=== PATIENT | male | born 1965 | race African-American/Black ===

== ENCOUNTER 2023-03-23 17:20 | Emergency (ER) | payer OTHER ==
[~2023-03-23 17:20] MED LIST: Iopamidol-370 76% 500 ML MDV (1 ML CHARGE) ONE
[2023-03-23 18:18] LABS: Hemoglobin 14.2 g/dL (14.0-18.0); Manual Diff?? YES; Mean Corpuscular HGB CONC 33.9 g/dL (32.0-36.0); Mean Corpuscular Hemoglobin 31.9 pg (27.0-31.0); Mean Corpuscular Volume 94.2 fl (78.0-98.0); Mean Platelet Volume 10.6 fL (7.4-10.4); Platelet Count 168 10x3/uL (130-400); RBC Distribution Width 12.4 % (11.5-14.5); Red Blood Cell (RBC) Count 4.45 mill/uL (4.70-6.10); White Blood Cell (WBC) Count 4.7 10x3/uL (4.8-10.8)
[2023-03-23 18:21] LABS: Delete Auto Diff?? YES
[2023-03-23 18:34] LABS: Prothrombin Time 13.5 sec (12.0-14.7)
[2023-03-23 18:39] LABS: CellaVision Operator ID LAB.KB; Eosinophils 3 % (0-10); Large Platelets 5.1 % (0-5); Lymphocytes 31 % (21-51); Monocytes 13 % (0-10); Neutrophil 30 % (42-75); Platelet Adequacy Comment Platelets Normal; RBC Morphology Within Normal Limits; Reactive Lymphocytes 22 % (0-10); Smudge Cells 30.3 %; Total Cell Count 99
[2023-03-23 18:49] LABS: Anion Gap 13 mmol/L (10-20); BUN (Urea Nitrogen) 13 mg/dL (8.4-25.7); Calc. Creatinine Clearance 0 mL/min (70-130); Carbon Dioxide 24 mmol/L (22-29); Chloride 106 mmol/L (98-107); Estimated GFR 99; Glucose 84 mg/dL (70-105); Potassium 4.6 mmol/L (3.5-5.1); Sodium 138 mmol/L (136-145)
[2023-03-23 18:50] LABS: ALT (SGPT) 31 U/L (8-55); AST (SGOT) 21 U/L (5-34); Albumin 4.1 g/dL (3.5-5.0); Alkaline Phosphatase 77 U/L (40-110); Bilirubin, Total 0.4 mg/dL (0.2-1.2); Calcium 9.6 mg/dL (7.8-10.44); Globulin 2.8 g/dL (2.4-3.5); Protein, Total 6.9 g/dL (6.0-8.3)
[2023-03-23 18:55] LABS: Bacteria/HPF None Seen HPF (None Seen); Bilirubin Negative (Negative); Blood, Urine Negative (Negative); CAUTI Indications for Culture Alt mental st,lethar; Clarity Clear (Clear); Glucose, Urine (Dipstick) Normal (Negative); Ketone, Urine Negative (Negative); Leukocyte Negative Leu/uL (Negative); Nitrite Negative (Negative); Protein, Urine (Dipstick) Negative (Neg-Trace); RBC/HPF 0-3 HPF (0-3); Specific Gravity, Urine 1.026 (1.002-1.036); Squamous Epithelial None Seen HPF (0-3); Urobilinogen Normal mg/dL (Less than 2); WBC/HPF 0-3 HPF (0-3); pH, Urine 6.5 (5.0-9.0)
[2023-03-23] MEDS ORDERED: diphenhydrAMINE 50 MG/ML VIAL ONE (18:55)
[2023-03-23] MEDS ORDERED: Metoclopramide HCl 10 MG/2 ML VIAL ONE (18:55)
[2023-03-23 18:59] LABS: Urine Culture Reflex No No
[2023-03-23 19:03] LABS: Amphetamine Not Detected (NotDetected); Barbiturates Screen Not Detected (NotDetected); Benzodiazepine Screen Not Detected (NotDetected); Cocaine Metabolite Screen Not Detected (NotDetected); Methadone Not Detected (NotDetected); Methamphetamine Not Detected (NotDetected); Opiate Screen Not Detected (NotDetected); Oxycodone Screen Not Detected (NotDetected); Phencyclidine (PCP) Not Detected (NotDetected); THC/Cannabinoid Screen Not Detected (NotDetected); Tricyclic Screen Not Detected (NotDetected)
[2023-03-23] MEDS ORDERED: Aspirin Chewable 81 MG TAB ONE (20:16)
[2023-03-23] MEDS ORDERED: cefTRIAXone (ROCEPHIN) 2 GM VIAL ONE (20:16)
[2023-03-24 03:23] LABS: SARS-CoV-2 NAA Rapid Test Not Detected (NotDetected)
== END 2023-03-24 06:36 | disposition short-term general hospital (02) ==
LOC: ERS 17:20
DX: R53.1 Weakness (principal); I67.9 Cerebrovascular disease, unspecified; D72.819 Decreased white blood cell count, unspecified; I10 Essential (primary) hypertension
CPT/HCPCS: 36415; 36416; 70450; 70496; 70498; 71045; 80053; 80306; 81001; 82140; 83605; 84484; 85025; 85610; 85730; 87040; 87086; 93005; 94760; 96365; 96366; 96367; 96368; 96375; J0696; J1200; J2765; U0002